=== PATIENT | female | born 1955 | race Caucasian/White ===

== ENCOUNTER 2017-10-23 08:36 | Day surgery (SDC) | payer OTHER, SELFPAY ==
[~2017-10-23] VITALS: Ht 160 cm; Wt 60.4 kg
[~2017-10-23 08:36] MED LIST: OXYACE5T PO
== END 2017-10-23 12:05 | disposition home or self-care (01) ==
LOC: ORSCSDS 08:36
PROVIDERS: Ophthalmology
PROC: 08BSXZZ Excision of Right Conjunctiva, External Approach (ICD-10-PCS; principal; 2017-10-23 10:00)
DX: H11.031 Double pterygium of right eye (principal)
CPT/HCPCS: 88304; J2250; J3010; J7040; V2790

== ENCOUNTER 2019-03-04 07:59 | Day surgery (SDC) | payer OTHER, SELFPAY ==
[~2019-03-04] VITALS: Ht 160 cm; Wt 59.4 kg
[~2019-03-04 07:59] MED LIST changes: +CHOL10002 PO; +Collagen Plus1 EACH; +Multivitamin1 EAC1 PO
--- NOTE | 2019-03-04 10:36 | NUR ---
03/04/19 1036 Ericka Chisholm MED C TYLENOL 1000MG PO PER DR NITIN CLOUD
--- NOTE | 2019-03-30 10:26 | NUR ---
03/30/19 [id number] Pawan Vega LATE ENTRY FOR 03/04/19 GRAFT CAME IN PREPARED FORM, NO SOLUTIONS NEEDED.
== END 2019-03-04 11:11 | disposition home or self-care (01) ==
LOC: ORSCSDS 07:59
PROVIDERS: Ophthalmology
PROC: 08B Eye, Excision (ICD-10-PCS; principal; 2019-03-04 09:30)
DX: H11.032 Double pterygium of left eye (principal)
CPT/HCPCS: 88304; C1762; J2250; J2704; J3010; J7120

== ENCOUNTER → 2020-11-09 | Outpatient (CLI) | payer OTHER | END | disposition home or self-care (01) | LOC: LAB 11:02 → LAB SHORT 11:02 | DX: M54.5 Low back pain (principal) | CPT/HCPCS: 87086 ==

== ENCOUNTER 2022-02-27 06:28 | Day surgery (SDC) | payer MEDICARE ==
[~2022-02-27] VITALS: Ht 160 cm; Wt 63.2 kg
== END 2022-02-27 08:54 | disposition home or self-care (01) ==
LOC: ORSCSDS 06:28
PROVIDERS: Surgery
PROC: 0DBM8ZX Excision of Descending Colon, Via Natural or Artificial Opening Endoscopic, Diagnostic (ICD-10-PCS; principal; 2022-02-27 08:00)
DX: Z12.11 Encounter for screening for malignant neoplasm of colon (principal); Z86.010 Personal history of colon polyps; D12.4 Benign neoplasm of descending colon; K57.30 Diverticulosis of large intestine without perforation or abscess without bleeding; E78.5 Hyperlipidemia, unspecified; K21.9 Gastro-esophageal reflux disease without esophagitis; Z79.899 Other long term (current) drug therapy
CPT/HCPCS: 88305; J2704; J7120